=== PATIENT | female | born 2005 | race African-American/Black ===

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

== ENCOUNTER → 2023-08-06 | Outpatient (CLI) | payer OTHER ==
[~2023-08-06] MED LIST changes: +IBUP-844 PO
--- NOTE | 2023-08-06 11:17 | Diagnostic Imaging Report ---
INDICATION: dating. The uterus measures 9.3 x 4.8 x 7.5 cm. There is an intrauterine gestational sac measuring 7 weeks 5 days. However, no pole or yolk sac is visualized. No todd-gestational sac hemorrhage is detected. The right ovary measures 4.1 x 2.1 x 2.2 cm and the left ovary measures 3.0 x 1.6 x 2.8 cm. No adnexal mass or free fluid is detected. IMPRESSION: Intrauterine gestational sac without evidence of pole or yolk sac. Findings are suggestive of blighted ovum. No other significant abnormality is detected. Dictated by: Dictated on workstation # [id number]
== END ==
LOC: RAD 08:00
PROVIDERS: ATTEND Family Medicine
DX: Z36.87 Encounter for antenatal screening for uncertain dates (principal)
CPT/HCPCS: 76801; 76817

== ENCOUNTER 2023-08-17 06:27 | Day surgery (SDC) | payer OTHER ==
[2023-08-17] VITALS (11 sets, daily range): BP systolic 92–117; BP diastolic 47–81
[~2023-08-17] VITALS: Ht 167.7 cm; Wt 65.9 kg
[~2023-08-17 06:27] MED LIST changes: +ARIP15TA20 PO; +LAMO200T5 PO
[2023-08-17] MEDS ORDERED: LACTATED RINGERS 1,000 ML 1,000 ML IV PRN (07:15)
--- NOTE | 2023-08-17 07:24 | Progress Note-Pre Operative ---
Pre-Operative Progress Note Date of Available H&P: Aug 17, 2023 Date H&P Reviewed: Aug 17, 2023 Time H&P Reviewed: 07:00 History & Physical: Patient Examed Pre-Operative Diagnosis: Blighted ovum plan for suction D&E RAQUEL THOMPSON DO Aug 17, 2023 07:24
--- NOTE | 2023-08-17 07:26 | OB/GYN Operative Report ---
Operative Report Date of Procedure:Aug 17, 2023 Preoperative Diagnosis: Blighted ovum Postoperative Diagnosis: Same Name of the Procedure: Suction D&E Surgeon: Raquel Thompson Hydrometer Tester(s): [none] Anesthesia: General LMA Indications for Procedure: This 18-year-old presented with a blighted ovum that was noted on ultrasound. She attempted misoprostol but did not have passage of the products of conception. It was decided that we would proceed to a suction D&E. We discussed the risk benefits and alternatives including but not limited to the risks of infection, bleeding, injury to the uterus scar tissue injury to abdominal pelvic ORGANS VTE nerve and limb damage anesthesia risks scar tissue formation which could lead to infertility and the benefits of removing the products of conception with a decreased risk of infection. The patient verbalized understanding and had all of her questions answered to her satisfaction and signed consents and is ready to proceed. Findings of the Procedure: Products of conception Complications: None Disposition: Counts correct x2 patient taken recovery room in stable condition. Description of the Procedure: Informed consent was obtained and signed and patient was taken to the OR [place]. 3 placed under general LMA anesthesia placed in the dorsolithotomy position prepped and draped in the usual sterile fashion. A timeout was performed.The bladder was drained for a total of 150 cc of clear yellow urine. A pelvic exam under anesthesia revealed a slightly enlarged uterus slightly retroverted. A weighted speculum was placed into the posterior vaginal vault and single-tooth tenaculum was used to grasp the anterior lip of the cervix. Uterus sounded to 8 cm. The os was dilated to allow passage of a 7 Barbadian curved suction catheter. This was passed several times to remove products of conception. A blunt curette was used to feel the uterine cavity there was noted to be still some products of conception left. An 8 Barbadian suction catheter was then inserted and passed 2 more times and products of conception was removed as much as possible. A blunt curette was used again and no products of conception were seen. The products of conception was sent to pathology for further analysis. The single- tooth and weighted speculum were removed and the uterus was massaged and Pitocin 20 units was given intravenously in the IV bag. The estimated blood loss was 500 cc fluids were 1100 cc and urine output was 150 cc. All my counts were c orrect x2. The patient was taken to recovery room in stable condition. RAQUEL THOMPSON DO Aug 17, 2023 07:26
--- NOTE | 2023-08-17 07:27 | Discharge Inst-Simple/Standard ---
Discharge Inst-Standard Reconcile Patient Problems Problems Reviewed?: Yes Discharge Medications New, Converted or Re-Newed RX: Other Patient Instructions/Follow Up Plan of Care/Instructions/FU: Follow-up in 1 week Pelvic rest (nothing in the vagina: No tampons, douches or intercourse) Activity as Tolerated: Yes Discharge Diet: Regular Diet Return to The Hospital For: Increased pain, temperature over 101 F or increased bleeding RAQUEL THOMPSON DO Aug 17, 2023 07:27
[2023-08-17] MEDS: LACTATED RINGERS 1,000 ML 1,000 ML IV PRN ×2 (07:38→08:55)
[2023-08-17] MEDS ORDERED: ONDA4TAB11 SL (08:09)
[2023-08-17] MEDS ORDERED: proPOfol INJECTION 200 MG/20 ML VIAL IV ONE (08:22)
[2023-08-17] MEDS ORDERED: fentaNYL INJECTION 100 MCG/2 ML VIAL ONE (08:23)
[2023-08-17] MEDS ORDERED: OXYTOCIN INJECTION 10 UNIT/ML VIAL ONE (08:59)
[2023-08-17] MEDS ORDERED: KETOROLAC INJ 30 MG/ML VIAL ONE (09:00)
[2023-08-17] MEDS ORDERED: SEVOFLURANE (ULTANE) 15 ML INHAL SOLN ONE (09:00)
[2023-08-17] MEDS ORDERED: dexAMETHasone INJ 10 MG/ML 1 ML VIAL ONE (09:00)
[2023-08-17] MEDS ORDERED: LIDOCAINE PF 2% 5 ML VIAL ONE (09:00)
[2023-08-17] MEDS ORDERED: ONDANSETRON INJECTION 4 MG/2 ML (SDV) ONE (09:00)
[2023-08-17] MEDS ORDERED: IBUP-1780 PO (09:10)
--- NOTE | 2023-08-17 11:44 | Anesthesia-General Post-Op ---
General Patient Condition Mental Status/LOC: Same as Preop Cardiovascular: Satisfactory Nausea/Vomiting: Absent Respiratory: Satisfactory Pain: Controlled Complications: Absent Post Op Complications Complications None Follow Up Care/Instructions Patient Instructions None needed. Anesthesia/Patient Condition Patient Condition Patient is doing well, no complaints, stable vital signs, no apparent adverse anesthesia problems. No complications reported per nursing. KAYLEE COLEMAN CRNA Aug 17, 2023 11:44
== END 2023-08-17 11:25 | disposition home or self-care (01) ==
LOC: SDC 06:27
PROVIDERS: ATTEND Obstetrics & Gynecology
DX: O02.0 Blighted ovum and nonhydatidiform mole (principal); Z87.891 Personal history of nicotine dependence
CPT/HCPCS: 87081